=== PATIENT | male | born 1955 | race African-American/Black ===

== ENCOUNTER 2017-10-22 15:10 | Emergency (ER) | payer MEDICARE, OTHER | END 2017-10-22 15:55 | disposition home or self-care (01) | LOC: ER 15:10 | DX: H60.501 Unspecified acute noninfective otitis externa, right ear (principal); H61.21 Impacted cerumen, right ear; I10 Essential (primary) hypertension | CPT/HCPCS: 99283 ==

== ENCOUNTER 2018-01-02 08:29 | Emergency (ER) | payer MEDICARE ==
[~2018-01-02] VITALS: Ht 170.2 cm; Wt 72.6 kg
[~2018-01-02 08:29] MED LIST: NEOM10DR32 RIGHT EAR; PHEN100C PO; hypertension med
[2018-01-02] MEDS ORDERED: fentaNYL PF VIAL 100 MCG/2 ML VIAL IV ONE (09:00)
[2018-01-02] MEDS ORDERED: IV NORMAL SALINE 1000ML BAG 1,000 ML IV ONE (09:00)
--- NOTE | 2018-01-02 09:15 | PHYS DOC ---
Past Medical History Past Medical History: Hypertension, Seizure Past Surgical History: Other Additional Past Surgical Histo: right knee, L ankle Alcohol Use: Rarely Drug Use: None Adult General Chief Complaint Chief Complaint: GENERALIZED BODY ACHES HPI HPI 62-year-old male presents to ER with complaints of 2 week history of generalized fatigue. Patient reports he had flulike symptoms 2 weeks ago which has improved however his fatigue and weakness continued. Patient reports he has had decreased appetite and upper back pain. Patient denies any known injury. Patient reports he has had dry cough for the past couple of weeks and is a daily smoker of less than half pack cigarettes. Patient denies any chest pain, palpitations, fever, abdominal pain, or urinary sxs. Pt had reg. BM this morning. Pt denies any recent travel or other family members being ill. Pt reports he had GI issues 2 wks ago with N/V denies any this week. Pt's girlfriend Marisol is at bedside denies pt with any confusion or change in MS. Review of Systems Review of Systems Constitutional: Denies fever or chills. Reports generalized fatigue/weakness Eyes: Denies change in visual acuity, redness, or eye pain [] HENT: Denies nasal congestion or sore throat [] Respiratory: Denies shortness of breath. Reports nonprod. cough Cardiovascular: Denies CP/palpitations GI: Denies abdominal pain, nausea, vomiting, bloody stools or diarrhea [] : Denies dysuria or hematuria [] Musculoskeletal: Reports generalized bodyaches and upper back pain Integument: Denies rash, swelling, or skin lesions [] Neurologic: Denies headache, focal weakness or sensory changes [] All other systems were reviewed and found to be within normal limits, except as documented in this note. Current Medications Current Medications Current Medications Medications (Trade) Dose Ordered Sig/Sara Start Time Stop Time Status Last Admin Dose Admin Fentanyl Citrate (Fentanyl 2ml Vial) 25 mcg 1X ONCE 01/02/18 09:00 01/02/18 09:05 DC 01/02/18 09:48 25 MCG Ibuprofen (Motrin) 600 mg 1X ONCE 01/02/18 10:45 01/02/18 10:46 DC 01/02/18 10:58 600 MG Sodium Chloride 1,000 ml @ 1,000 mls/hr 1X ONCE 01/02/18 09:00 01/02/18 09:59 DC 01/02/18 09:51 1,000 MLS/HR Allergies Allergies Allergies Coded Allergies Type Severity Reaction Last Updated Verified No Known Drug Allergies 09/02/15 No Physical Exam Physical Exam Constitutional: Well developed, well nourished, no acute distress, non-toxic appearance. [] HENT: Normocephalic, atraumatic, bilateral external ears normal, oropharynx moist, no oral exudates, nose normal. [] Eyes: PERRLA, EOMI, conjunctiva normal, no discharge. [] Neck: Normal range of motion, no tenderness, supple, no stridor. [] Cardiovascular:Heart rate regular rhythm, no murmur [] Lungs & Thorax: Bilateral breath sounds clear to auscultation [] Abdomen: Bowel sounds normal, soft, no tenderness, no masses, no pulsatile masses. [] Skin: Warm, dry, no erythema, no rash. [] Back: No tenderness, no CVA tenderness. [] Extremities: No tenderness, no cyanosis, no clubbing, ROM intact, no edema. [] Neurologic: Alert and oriented X 3, normal motor function, normal sensory function, no focal deficits noted. [] Psychologic: Affect normal, judgement normal, mood normal. [] Current Patient Data Vital Signs Vital Signs Date Time Temp Pulse Resp B/P (MAP) Pulse Ox O2 Delivery O2 Flow Rate FiO2 01/02/18 11:23 69 20 156/93 (114) 95 Room Air 01/02/18 08:36 97.8 97.8 Lab Values Laboratory Tests Test 01/02/18 09:11 01/02/18 10:30 White Blood Count 8.4 x10^3/uL (4.0-11.0) Red Blood Count 5.06 x10^6/uL (4.30-5.70) Hemoglobin 15.8 g/dL (13.0-17.5) Hematocrit 45.3 % (39.0-53.0) Mean Corpuscular Volume 89 fL (79-100) Mean Corpuscular Hemoglobin 31 pg (25-35) Mean Corpuscular Hemoglobin Concent 35 g/dL (31-37) Red Cell Distribution Width 13.8 % (11.5-14.5) Platelet Count 423 x10^3/uL (140-400) H Neutrophils (%) (Auto) 64 % (31-73) Lymphocytes (%) (Auto) 22 % (24-48) L Monocytes (%) (Auto) 11 % (0-9) H Eosinophils (%) (Auto) 3 % (0-3) Basophils (%) (Auto) 1 % (0-3) Neutrophils # (Auto) 5.3 x10^3uL (1.8-7.7) Lymphocytes # (Auto) 1.8 x10^3/uL (1.0-4.8) Monocytes # (Auto) 0.9 x10^3/uL (0.0-1.1) Eosinophils # (Auto) 0.2 x10^3/uL (0.0-0.7) Basophils # (Auto) 0.1 x10^3/uL (0.0-0.2) Sodium Level 134 mmol/L (136-145) L Potassium Level 4.2 mmol/L (3.5-5.1) Chloride Level 95 mmol/L (98-107) L Carbon Dioxide Level 26 mmol/L (21-32) Anion Gap 13 (6-14) Blood Urea Nitrogen 10 mg/dL (8-26) Creatinine 0.9 mg/dL (0.7-1.3) Estimated GFR (Cockcroft-Gault) 103.8 BUN/Creatinine Ratio 11 (6-20) Glucose Level 114 mg/dL (70-99) H Calcium Level 10.3 mg/dL (8.5-10.1) H Magnesium Level 2.2 mg/dL (1.8-2.4) Total Bilirubin 0.6 mg/dL (0.2-1.0) Aspartate Amino Transferase (AST) 25 U/L (15-37) Alanine Aminotransferase (ALT) 26 U/L (16-63) Alkaline Phosphatase 128 U/L (46-116) H Troponin I Quantitative < 0.017 ng/mL (0.000-0.055) Total Protein 8.1 g/dL (6.4-8.2) Albumin 4.0 g/dL (3.4-5.0) Albumin/Globulin Ratio 1.0 (1.0-1.7) Urine Collection Type Unknown Urine Color Yellow Urine Clarity Clear Urine pH 6.5 Urine Specific [place] 1.015 Urine Protein Negative mg/dL (NEG-TRACE) Urine Glucose (UA) Negative mg/dL (NEG) Urine Ketones (Stick) Negative mg/dL (NEG) Urine Blood Negative (NEG) Urine Nitrite Negative (NEG) Urine Bilirubin Negative (NEG) Urine Urobilinogen Dipstick 1.0 mg/dL (0.2 mg/dL) Urine Leukocyte Esterase Moderate (NEG) Urine RBC Occ /HPF (0-2) Urine WBC 5-10 /HPF (0-4) Urine Squamous Epithelial Cells Occ /LPF Urine Bacteria Few /HPF (0-FEW) Laboratory Tests 01/02/18 09:11 Laboratory Tests 01/02/18 09:11 EKG EKG [] Radiology/Procedures Radiology/Procedures PROCEDURE: CHEST AP ONLY Portable chest, 01/02/2018: HISTORY: Cough, fatigue The heart size is normal. The lungs are clear. There is no evidence of pleural fluid. There are tiny radiopaque foreign bodies projected over the left shoulder which may be due to previous penetrating trauma or surgery. IMPRESSION: No acute cardiopulmonary abnormality is detected. Electronically signed by: Galo Recio MD (01/02/2018 9:23 AM) [facility] DICTATED and SIGNED BY: GALO RECIO MD DATE: 01/02/18921 Course & Med Decision Making Course & Med Decision Making Pertinent Labs and Imaging studies reviewed. (See chart for details) 1130: On reevaluation patient reports his upper back pain has improved he does continue to have some discomfort but states symptoms much better than at time of arrival to ER. Patient continues to deny any chest pain or palpitations. Patient denies any shortness of air and is speaking in full sentences with no respiratory distress. Test results were discussed with the EKG showing no acute ST elevation or STEMI and troponin was <0.017; chest x-ray with no acute findings- UA had moderate leuks neg. nitrates/blood with 5-10 WBCs and bacteria on micro. Pt denies any urinary sxs/fever and so will hold off on any tx at this time. Admission was discussed and offered for further monitoring and care- patient at this time is not wanting to be admitted stating he has things he needs to take care of at home. Patient reports his symptoms worsen he would return to ER. Patient advised to follow-up with his primary care physician in next 2-3 days for reevaluation or sooner with any concerns. Discharge instructions were discussed and education provided on signs and symptoms to return to ER for. Patient requesting pain medication for home. Will provide small quantity of [place] with education on the medication as well as need to avoid alcohol while taking the [place], avoid driving, as well as fall precautions if taking this medication. At time of discharge and patient was in no visible distress with full range of motion of neck and back. Dragon Disclaimer Dragon Disclaimer This electronic medical record was generated, in whole or in part, using a voice recognition dictation system. Departure Departure Impression: Primary Impression: Fatigue Additional Impression: Cough Disposition: HOME, SELF-CARE Condition: STABLE Referrals: MARCIO DANIEL MD (PCP) Patient Instructions: Cough, Adult, Fatigue Additional Instructions: As discussed avoid alcohol and smoking. Plenty of fluids, get plenty of rest, and eat well-balanced meals. If taking the [place] tablets avoid additional acetaminophen/Tylenol and no driving or drinking alcohol while on this medicine. If symptoms persist or with any concerns follow-up advised in next 2- 3 days with primary care physician. [id number] sports cream as directed on container. Also can take over-the- counter ibuprofen as directed on container for pain. Scripts Hydrocodone/Apap 5-325 (NORCO 5-325 TABLET) 1 Each Tablet 1 TAB PO PRN Q6HRS PRN for PAIN, #10 TAB 0 Refills Prov: FRANCI GRADY APRN 01/02/18 Problem Qualifiers FRANCI GRADY APRN Jan 02, 2018 09:15
--- NOTE | 2018-01-02 09:26 | RAD ---
Portable chest, 01/02/2018: HISTORY: Cough, fatigue The heart size is normal. The lungs are clear. There is no evidence of pleural fluid. There are tiny radiopaque foreign bodies projected over the left shoulder which may be due to previous penetrating trauma or surgery. IMPRESSION: No acute cardiopulmonary abnormality is detected. Electronically signed by: Galo Recio MD (01/02/2018 9:23 AM) [facility]
[2018-01-02 09:32] LABS: BASO # 0.1 x10^3/uL (0.0-0.2); BASO % 1 % (0-3); EOS # 0.2 x10^3/uL (0.0-0.7); EOS % 3 % (0-3); HEMATOCRIT 45.3 % (39.0-53.0); HEMOGLOBIN 15.8 g/dL (13.0-17.5); LYMPH # 1.8 x10^3/uL (1.0-4.8); LYMPH % 22 % (24-48); MEAN CORPUSCULAR HEMOGLOBIN 31 pg (25-35); MEAN CORPUSCULAR HGB CONC 35 g/dL (31-37); MEAN CORPUSCULAR VOLUME 89 fL (79-100); MONO # 0.9 x10^3/uL (0.0-1.1); MONO % 11 % (0-9); NEUT # 5.3 x10^3uL (1.8-7.7); NEUT % 64 % (31-73); PLATELET COUNT 423 x10^3/uL (140-400); RED BLOOD COUNT 5.06 x10^6/uL (4.30-5.70); RED CELL DISTRIBUTION WIDTH 13.8 % (11.5-14.5); WHITE BLOOD COUNT 8.4 x10^3/uL (4.0-11.0)
[2018-01-02 09:34] LABS: CALCIUM 10.3 mg/dL (8.5-10.1); CREATININE 0.9 mg/dL (0.7-1.3); GFR 103.8; POTASSIUM 4.2 mmol/L (3.5-5.1)
[2018-01-02 09:40] LABS: MAGNESIUM 2.2 mg/dL (1.8-2.4); TOTAL BILIRUBIN 0.6 mg/dL (0.2-1.0); TOTAL PROTEIN 8.1 g/dL (6.4-8.2)
--- NOTE | 2018-01-02 10:04 | EKG ---
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
[2018-01-02] MEDS ORDERED: IBUPROFEN 600 MG TABLET. PO ONE (10:45)
[2018-01-02 11:07] LABS: BILIRUBIN,URINE NEGATIVE (NEG); CLARITY,URINE CLEAR; COLOR,URINE YELLOW; NITRITE,URINE NEGATIVE (NEG); PH,URINE 6.5; PROTEIN,URINE NEGATIVE (NEG-TRACE)
[2018-01-02 11:18] LABS: RBC,URINE OCC /HPF (0-2); SQUAMOUS EPITHELIAL CELL,UR OCC /LPF
[2018-01-02 11:19] LABS: BACTERIA,URINE FEW /HPF (0-FEW)
[2018-01-02 11:23] VITALS: BP 156/93
[2018-01-02] MEDS ORDERED: HYDR-971 PO (11:37)
== END 2018-01-02 12:00 | disposition home or self-care (01) ==
LOC: ER 08:29
DX: R53.83 Other fatigue (principal); R53.1 Weakness; R05 Cough; M54.6 Pain in thoracic spine; R00.2 Palpitations; I10 Essential (primary) hypertension; F17.210 Nicotine dependence, cigarettes, uncomplicated
CPT/HCPCS: 36415; 71045; 80053; 81001; 83735; 84484; 85025; 87086; 93005; 96374; 99285; J3010; J7030

== ENCOUNTER 2018-05-30 13:31 | Emergency (ER) | payer MEDICARE, OTHER ==
[~2018-05-30] VITALS: Ht 167.6 cm; Wt 65.8 kg
[~2018-05-30 13:31] MED LIST changes: +HYDR-3164 PO
[2018-05-30] MEDS ORDERED: cefTRIAXone IM 250 MG VIAL IM ONE (13:45)
[2018-05-30] MEDS ORDERED: metroNIDAZOLE 500 MG TABLET PO ONE (13:45)
[2018-05-30] MEDS ORDERED: AZITHROMYCIN 250 MG TABLET. PO ONE (13:45)
[2018-05-30 13:47] VITALS: BP 145/94
--- NOTE | 2018-05-30 14:16 | PHYS DOC ---
Past Medical History Past Medical History: Hypertension, Seizure Past Surgical History: Other Additional Past Surgical Histo: right knee, L ankle Alcohol Use: Heavy Additional Information: DAILY DRINKER - "TWO CANS OF BEER EVERY DAY" Drug Use: None Adult General Chief Complaint Chief Complaint: SEXUALLY TRANSMITTED DISEASE HPI HPI Patient is a 62 year old male who presents to be treated for STDs, patient's significant other tested positive for Trichomonas, I talked to patient and instructed him to consider treatment which he accepted. Patient has no symptoms. Review of Systems Review of Systems Constitutional: Denies fever or chills [] GI: Denies abdominal pain, nausea, vomiting, bloody stools or diarrhea [] : Concern for STDs. Denies dysuria or hematuria [] Musculoskeletal: Denies back pain or joint pain [] Integument: Denies rash or skin lesions [] Neurologic: Denies headache, focal weakness or sensory changes [] All other systems were reviewed and found to be within normal limits, except as documented in this note. Current Medications Current Medications Current Medications Medications (Trade) Dose Ordered Sig/Sara Start Time Stop Time Status Last Admin Dose Admin Azithromycin (Zithromax) 1,000 mg 1X ONCE 05/30/18 13:45 05/30/18 13:46 DC Ceftriaxone Sodium (Rocephin Im) 250 mg 1X ONCE 05/30/18 13:45 05/30/18 13:46 DC Metronidazole (Flagyl) 2,000 mg 1X ONCE 05/30/18 13:45 05/30/18 13:46 DC Allergies Allergies Allergies Coded Allergies Type Severity Reaction Last Updated Verified No Known Drug Allergies 09/02/15 No Physical Exam Physical Exam Constitutional: Well developed, well nourished, no acute distress, non-toxic appearance. [] Abdomen: Bowel sounds normal, soft, no tenderness, no masses, no pulsatile masses. [] Skin: Warm, dry, no erythema, no rash. [] Back: No tenderness, no CVA tenderness. [] Extremities: No tenderness, no cyanosis, no clubbing, ROM intact, no edema. [] Neurologic: Alert and oriented X 3, normal motor function, normal sensory function, no focal deficits noted. [] Psychologic: Affect normal, judgement normal, mood normal. [] Current Patient Data Vital Signs Vital Signs Date Time Temp Pulse Resp B/P (MAP) Pulse Ox O2 Delivery O2 Flow Rate FiO2 05/30/18 13:47 97.7 98 16 145/94 (111) 97 Room Air 97.7 EKG EKG [] Radiology/Procedures Radiology/Procedures [] Course & Med Decision Making Course & Med Decision Making Pertinent Labs and Imaging studies reviewed. (See chart for details) This is a 62-year-old male patient presenting to the ED today for STD treatment after the significant other tested positive for Trichomonas, patient has no symptoms. Was given standard STD treatment in the ED and discharged. Emphasized importance of using protection. Follow-up with primary care doctor or the health department for further STD concerns. Dragon Disclaimer Dragon Disclaimer This electronic medical record was generated, in whole or in part, using a voice recognition dictation system. Departure Departure Impression: Primary Impression: Concern about STD in male without diagnosis Disposition: 01 HOME, SELF-CARE Condition: STABLE Referrals: MARCIO DANIEL MD (PCP) Follow up in 1-2 weeks Patient Instructions: Sexually Transmitted Disease Additional Instructions: You were treated for sexually transmitted diseases is in the emergency room. Use protection at all times do not have sex for one week. Contact all your sex partners, let them know you were treated for STDs and ask them to seek treatment too. RAVEN MUELLER APRN May 30, 2018 14:16
[2018-05-30 14:22] LABS: BILIRUBIN,URINE NEGATIVE (NEG); CLARITY,URINE CLEAR; COLOR,URINE YELLOW; NITRITE,URINE NEGATIVE (NEG); PH,URINE 5.5; PROTEIN,URINE NEGATIVE (NEG-TRACE); UROBILINOGEN,URINE 0.2 mg/dL (0.2 mg/dL)
[2018-05-30 14:34] LABS: BACTERIA,URINE 0 /HPF (0-FEW); RBC,URINE 0 /HPF (0-2); TRICHOMONAS,URINE PRESENT
== END 2018-05-30 14:34 | disposition home or self-care (01) ==
LOC: ER 13:31
DX: Z20.2 Contact with and (suspected) exposure to infections with a predominantly sexual mode of transmission (principal); I10 Essential (primary) hypertension; F10.20 Alcohol dependence, uncomplicated; Y90.9 Presence of alcohol in blood, level not specified
CPT/HCPCS: 81001; 87491; 87591; 96372; 99283; J0696; Q0144